=== PATIENT | male | born 1975 | race Caucasian/White ===

== ENCOUNTER 2024-03-01 16:27 | Inpatient (IN) | payer BC, SELFPAY ==
[2024-03-01] VITALS (8 sets, daily range): BP systolic 117–125; BP diastolic 75–91; PULSE 78–88; RESP 12–32; TEMP 36.7; O2SAT 88–97; BMI 31.6
--- NOTE | 2024-03-01 16:51 | CRLHL7_ITS ---
For Patients: As a result of the Century Cures Act, medical imaging exams and procedure reports are released immediately into your electronic medical record. You may view this report before your referring provider. If you have questions, please contact your health care provider. INDICATION: Upper abdominal pain. TECHNIQUE: CT abdomen and pelvis acquired with 100 cc intravenous contrast. Coronal and sagittal reformats were obtained. COMPARISON: None. FINDINGS: Lower chest: Within normal limits. Liver: Within normal limits. Spleen: The spleen is absent. Pancreas: Within normal limits. Gallbladder and bile ducts: Within normal limits. Kidneys: Unremarkable. Within normal limits. Adrenal glands: Within normal limits. Bowel: Several air-fluid levels involve the right-sided colon. Vascular: Within normal limits. Lymph nodes: Within normal limits. Peritoneum: Extensive free intraperitoneal air, most prominent underlying the right hemidiaphragm along the superior margin of the liver capsule as well as within the upper ventral abdomen. There are inflammatory changes involving the left-sided sigmoid colon, favored to reflect diverticulitis. A few small foci of gas are present along the margins of the inflamed colonic wall, although no clear site of bowel perforation is identified. Pelvis: Within normal limits. Bones: Within normal limits. Abdominal wall: Postop changes of ventral mesh hernia repair. IMPRESSION: 1. Multifocal extensive free intraperitoneal air, favored to reflect sequela of perforated diverticulitis given the inflamed left-sided sigmoid colon. Notably however, no focal site of bowel perforation is clearly identified. Surgery consult is recommended. Please note that all CT scans at this facility use dose modulation, iterative reconstruction, and/or weight-based dosing when appropriate to reduce radiation dose to as low as reasonably achievable. Dictated by Bob Montero MD @ 03/01/2024 5:53:53 PM (Electronically Signed)
--- NOTE | 2024-03-01 16:53 | ED_ITS ---
HPI - General Adult General Chief complaint: Abdominal Pain Stated complaint: stomach pain, constipation Time Seen by Provider: 03/01/24 16:28 History of Present Illness HPI narrative: Patient is a 48 year white male who has had several days of constipation, but now severe abdominal pain. He reports that diffusely in his lower abdomen radiates up into his lower abdomen and upper abdomen. He has had a history of pancreatitis in the past. He has had a history of inguinal hernia repair. He is generally quite healthy. His chart indicates that he is on atorvastatin and sertraline valacyclovir and Adderall. Denies fever chills, dysuria, hematuria. Patient presents in moderate distress to the ER with this complaint. Patient also tried some GoLYTELY. He had a sinus cold the last few days and he was taking [id number]-comprri medications. Related Data Home Medications ?Medication ?Instructions ?Recorded ?Confirmed atorvastatin 20 mg tablet 20 mg PO DAILY 06/23/23 06/23/23 dextroamphetamine-amphetamine ER 1 cap PO DAILY 06/23/23 06/23/23 30 mg 24hr capsule,extend release sertraline 100 mg tablet 100 mg PO DAILY 06/23/23 06/23/23 valacyclovir 500 mg tablet 500 mg PO DAILY 06/23/23 06/23/23 Previous Rx's ?Medication ?Instructions ?Recorded azithromycin 250 mg tablet See Rx Instructions PO .COMPLEX #6 06/23/23 tabs Allergies Allergy/AdvReac Type Severity Reaction Status Date / Time No Known Drug Allergies Allergy Verified 06/23/23 12:03 Review of Systems Status of ROS: Reports: 6 or more systems reviewed and unremarkable except as noted in History and below Exam Narrative: Exam Narrative: Objective: Patient has moderate distress He is alert or x3 No cyanosis Pulses regular Chest is clear Abdomen hypoactive bowel sounds Abdomen is diffusely tender with guarding diffusely. Extremities are no edema Neurologic nonfocal in upper lower extremities Const: Vital Signs, click to edit/add: Vital Signs - 24 hr 03/01/24 16:46 03/01/24 17:01 03/01/24 17:34 Temperature 98.1 F Pulse Rate [Right Radial] 82 82 78 Respiratory Rate 32 H 28 H 12 Blood Pressure [Le ft Upper Arm] 117/82 125/91 H 118/75 Pulse Oximetry 97 93 Oxygen Delivery Me thod Room Air Room Air Room Air Course Vital Signs Vital signs: Initial Vital Signs Temperature 98.1 F 03/01/24 16:46 Temperature Source Temporal Artery Scan 03/01/24 16:46 Pulse Rate 82 03/01/24 16:46 Pulse Rhythm Regular 03/01/24 16:46 Respiratory Rate 32 H 03/01/24 16:46 Blood Pressure 117/82 03/01/24 16:46 Blood Pressure Mean 93 03/01/24 16:46 Oxygen Delivery Method Room Air 03/01/24 16:46 Vital Signs Temperature 98.1 F 03/01/24 16:46 Pulse Rate 82 03/01/24 16:46 Respiratory Rate 32 H 03/01/24 16:46 Blood Pressure 117/82 03/01/24 16:46 Oxygen Delivery Method Room Air 03/01/24 16:46 Temperature 98.1 F 03/01/24 16:46 Pulse Rate 78 03/01/24 17:34 Respiratory Rate 12 03/01/24 17:34 Blood Pressure 118/75 03/01/24 17:34 Pulse Oximetry 93 03/01/24 17:34 Oxygen Delivery Method Room Air 03/01/24 17:34 Medications Administered Medications: Discontinued Medications Generic Name Dose Route Start Last Admin Trade Name Freq PRN Reason Stop Dose Admin Sodium Chloride 1,000 mls @ 6,000 mls/hr 03/01/24 17:00 03/01/24 17:36 0.9 % Sodium Chloride 1000 Ml IV 03/01/24 17:09 1,000 mls/hr .Q10M FELICIA Administration Ertapenem 1 gm/ Sodium 100 mls @ 200 mls/hr 03/01/24 18:09 03/01/24 18:31 Chloride IVPB 03/01/24 18:10 200 mls/hr ONCE ONE Administration Lorazepam 0.5 mg 03/01/24 16:51 03/01/24 17:14 Lorazepam 2 Mg/Ml Inj IVP 03/01/24 16:52 0.5 mg ONCE ONE Administration Morphine Sulfate 4 mg 03/01/24 16:51 03/01/24 17:15 Morphine 4 Mg/Ml Inj IVP 03/01/24 16:52 4 mg ONCE ONE Administration Morphine Sulfate 2 mg 03/01/24 18:28 03/01/24 18:32 Morphine 4 Mg/Ml Inj IVP 03/01/24 18:29 2 mg ONCE ONE Administration Medical Decision Making MDM Narrative Medical decision making narrative: [age] year white male with several day history of constipation now with severe abdominal pain. Rule out constipation, rule out obstruction, rule out appendicitis, or intra-abdominal infection. Patient will get a CT scan with IV contrast of his abdomen pelvis, IV pain control, IV fluid, laboratory studies electrolytes. Disposition pending findings above and clinical response. Addendum 6:07 p.m. [place] [id number], his CT scan shows sigmoid diverticulitis and free air consistent with perforated sigmoid diverticulitis, and he has no evidence of fluid collection or abscess. Have discussed with General surgery and they will review the case and determine if he can obtain treatment here or needs more advanced care. Addendum: The patient this case has been reviewed by General surgery they feel like and taken the operating room here safely will start ertapenem. Patient reports he last ate before noon Lab Data Labs: Lab Results 03/01/24 Range/Units 17:00 WBC 15.03 H (4.50-11.00) K/uL RBC 4.96 (4.30-5.90) m/uL Hgb 15.2 (13.5-17.5) gm/dL Hct 45.4 (37.0-53.0) % MCV 92 (80-100) fL MCH 31 (26-34) pg MCHC 34 (32-36) gm/dL RDW Coeff of Romero 12.7 (11.5-15.5) % Plt Count 403 (140-440) K/uL Neut % (Auto) 70.9 (42.0-72.0) % Lymph % (Auto) 22.4 (20-44) % [place] % (Auto) 6.4 (0.0-11.0) % Eos % (Auto) 0.1 (0.0-7.0) % Baso % (Auto) 0.1 (0.0-3.0) % Neut # (Auto) 10.70 H (1.7-7.0) K/uL Lymph # (Auto) 3.40 H (0.90-2.90) K/uL [place] # (Auto) 1.00 H (0.00-0.90) K/UL Eos # (Auto) 0.00 (0.00-0.50) K/uL Baso # (Auto) 0.00 (0.00-0.30) K/uL Abs Immat Gran (auto) 0.00 (0.00-0.30) K/uL Imm/Tot Granulo (auto) 0.1 % Sodium 135 (135-149) mmol/L Potassium 3.7 (3.6-5.1) mmol/L Chloride 102 (96-114) mmol/L Carbon Dioxide 24 (20-32) mmol/L Anion Gap 9 (7-15) mEq/L BUN 22 (5-24) mg/dL Creatinine 1.3 (0.5-1.5) mg/dL Estimated Creat Clear 73.31 Estimated GFR 69 ml/min Glucose 126 H (60-115) mg/dL Calcium 9.4 (8.4-10.6) mg/dL Total Bilirubin 0.4 (0.1-1.5) mg/dL Direct Bilirubin 0.3 (0.0-0.5) mg/dL AST 44 H (12-35) U/L ALT 43 (4-50) U/L Alkaline Phosphatase 89 (40-150) U/L C-Reactive Protein 1.2 H (0.5-1.0) mg/dL Total Protein 7.9 (6.0-8.3) g/dL Albumin 4.7 (3.3-5.0) g/dL Amylase 78 (18-89) U/L Lipase 75 (23-300) U/L Discharge Plan Discharge Clinical Impression: Abdominal pain, Constipation Patient Disposition: Admitted As Observation
[2024-03-01 17:08] LABS: Basophils Percent Auto 0.1 % (0.0-3.0); Eosinophils Percent Auto 0.1 % (0.0-7.0); Hematocrit 45.4 % (37.0-53.0); Hemoglobin* 15.2 gm/dL (13.5-17.5); Immature Granulocytes Pct Auto 0.1 %; Lymphocytes Percent Auto 22.4 % (20-44); Mean Corpuscular HGB Conc 34 gm/dL (32-36); Mean Corpuscular Hemoglobin 31 pg (26-34); Mean Corpuscular Volume 92 fL (80-100); Monocytes Percent Auto 6.4 % (0.0-11.0); Neutrophils Percent Auto 70.9 % (42.0-72.0); Platelet Count* 403 K/uL (140-440); RDW Coefficient of Variation % 12.7 % (11.5-15.5); Red Blood Count 4.96 m/uL (4.30-5.90); White Blood Count* 15.03 K/uL (4.50-11.00)
[2024-03-01 17:13] LABS: Slide Review Reflex No
[2024-03-01] MEDS: LORazepam 2 MG/ML inj 0.5 MG IVP (17:14)
[2024-03-01] MEDS: MORPHINE 4 MG/ML INJ IVP (17:15)
[2024-03-01 17:21] LABS: Albumin* 4.7 g/dL (3.3-5.0); Chloride* 102 mmol/L (96-114)
[2024-03-01 17:22] LABS: Potassium* 3.7 mmol/L (3.6-5.1); Sodium* 135 mmol/L (135-149)
[2024-03-01 17:24] LABS: Amylase* 78 U/L (18-89); Anion Gap 9 mEq/L (7-15); Blood Urea Nitrogen* 22 mg/dL (5-24); Carbon Dioxide* 24 mmol/L (20-32); Creatinine* 1.3 mg/dL (0.5-1.5); Est. Creatinine Clearance* 73.31; Estimated Glomerular Filt Rate 69 ml/min; Total Protein* 7.9 g/dL (6.0-8.3)
[2024-03-01 17:25] LABS: Alanine Aminotransferase* 43 U/L (4-50); Alkaline Phosphatase* 89 U/L (40-150); Aspartate Amino Transferase* 44 U/L (12-35); Bilirubin Direct* 0.3 mg/dL (0.0-0.5); Bilirubin Total* 0.4 mg/dL (0.1-1.5); Calcium* 9.4 mg/dL (8.4-10.6); Glucose* 126 mg/dL (60-115)
[2024-03-01] MEDS: 0.9 % SODIUM CHLORIDE 1000 ml 1,000 ML IV (17:36)
[2024-03-01 17:47] LABS: C Reactive Protein* 1.2 mg/dL (0.5-1.0)
[2024-03-01 17:59] LABS: Lipase* 75 U/L (23-300)
[2024-03-01] MEDS: ERTAPENEM 1 GM in 0.9 % SODIUM CHLORIDE Mini-bag 100 ML IVPB (18:31)
[2024-03-01] MEDS: MORPHINE 4 MG/ML INJ 2 MG IVP (18:32)
--- NOTE | 2024-03-01 18:58 | P.GSHP_ITS ---
History of Present Illness History of Present Illness Date Seen: 03/01/24 Chief complaint: stomach pain, constipation Narrative: Rojelio Mayes is a 48 year old male who presented to the emergency department in severe abdominal pain. He started to feel unwell on Saturday. Initially he thoug ht he was starting to get a cold. He was also feeling very constipated, with his last bowel movement 3 days earlier. He has continued to pass gas. Today his abdominal pain became more diffuse and severe. He initially tried to drink some GoLYTELY, which made his symptoms worse and prompted him to come into the emergency department. He has never had anything like this before. He does have a complex abdominal surgical history, which includes an exploratory laparotomy when he was 21 for frequent bouts of pancreatitis. 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 His appendix was removed at the same time. He has also had several hernia repairs, with placement of mesh. Occasional cigarette and alcohol use, not every day. Otherwise healthy. Review of Systems Status of ROS: Reports: 10 or more systems reviewed and unremarkable except as noted in History and below [facility] Social History Smoking Status: Never smoker Do you use any of these nicotine containing products: None How often do you have a drink containing alcohol: monthly or less AUDIT-C Alcohol total score: 1 Non-prescribed substance use: denies use Meds Home Medications and Allergies Home Medications ?Medication ?Instructions ?Recorded ?Confirmed ?Type atorvastatin 20 mg tablet 20 mg PO DAILY 06/23/23 06/23/23 History dextroamphetamine-amphetamine ER 1 cap PO DAILY 06/23/23 06/23/23 History 30 mg 24hr capsule,extend release sertraline 100 mg tablet 100 mg PO DAILY 06/23/23 06/23/23 History valacyclovir 500 mg tablet 500 mg PO DAILY 06/23/23 06/23/23 History Allergies Allergy/AdvReac Type Severity Reaction Status Date / Time No Known Drug Allergies Allergy Verified 06/23/23 12:03 Exam Narrative: Exam Narrative: General: Alert and oriented, in moderate distress and diaphoretic Respiratory: Equal breath rise, maintained on room air CV: Well perfused, tachycardic Abdomen: Diffuse guarding and rebound, peritonitic abdomen. Rigid. Const: Vital Signs, click to edit/add: Vital Signs - 24 hr 03/01/24 16:46 03/01/24 17:01 03/01/24 17:34 Temperature 98.1 F Pulse Rate [Right Radial] 82 82 78 Respiratory Rate 32 H 28 H 12 Blood Pressure [Le ft Upper Arm] 117/82 125/91 H 118/75 Pulse Oximetry 97 93 Oxygen Delivery Me thod Room Air Room Air Room Air Results Results Labs: Leukocytosis (15). Mild elevation [facility] [employer] 1.2. Abdomen CT scan report/results: report reviewed and image reviewed Progress Note:A&P Assessment and plan (1) Perforated abdominal viscus: Status: Acute Assessment and Plan: Patient presents to the emergency department with an acute abdomen. CT scan demonstrates a significant amount of intra-abdominal free air. Etiology is suggestive on imaging for perforated diverticulitis, however no obvious site of bowel perforation identified. Could also be a gastric ulcer or small-bowel perforation. Recommend emergent surgical intervention. Risks and benefits of proceeding to the operating room were discussed at length with the patient. Would plan to perform exploratory laparotomy. Patient did receive IV ertapenem in the emergency department.
[2024-03-01] MEDS: LACTATED RINGERS 1000 ML 1,000 ML 125 ML IV (19:30)
--- NOTE | 2024-03-01 20:27 | SUR.OPER ---
PATIENT QUESTIONS ANSWERED SATISFACTORILY PREOPERATIVELY. PATIENT BROUGHT TO OR #4 PER CART. Patient positioned supine on OR #4 bed. The perioperative team supported arms bilaterally on arm boards. Final approval of positioning by surgeon.
--- NOTE | 2024-03-01 21:36 | SUR.OPER ---
PT. FAMILY UPDATED BY PHONE CALL AT 21:37.
--- NOTE | 2024-03-01 21:50 | P.NB_ITS ---
Nerve Block Nerve Block Time Seen by Provider: 20:00 Date Seen: 03/01/24 Type of block requested by surgeon for post-operative analgesia: TAP Side: bilateral Time out performed: Yes Verification of patient name: Yes Verification of date of : Yes Site marking: site marked Name of person performing procedure: Gilberto Stephen Continuous monitoring Was continuous monitoring of O2 sat, B/P, satellite project site monitor, recorded every 15 minutes?: Yes Procedure Checklist: sterile prep, needles and gloves Ultrasound guided. Images saved: Yes Medications given in 5ml increments after negative aspiration: Marcaine %: 0.25 mL: 30 Needle gauge: 21 and Exparel mL: 10 Needle gauge: 21 Patient tolerated procedure well: Yes Additional comments: Injected in 5mL increments after negative aspiration Block Charges Block Charge (with Pro Fee): TAP Bilateral Use of Ultrasound Machine for Block: Yes- US Guidance/pain block
[2024-03-02] VITALS (26 sets, daily range): BP systolic 133–151; BP diastolic 81–101; PULSE 72–85; RESP 16–24; TEMP 36.4–37.3; O2SAT 90–95
--- NOTE | 2024-03-02 00:43 | P.GSOP_ITS ---
Operative Note Date of procedure: 03/02/24 Pre-op diagnosis: Intra-abdominal free air Post-op diagnosis: Perforated diverticulitis of the distal descending colon Type of Procedure: 1. Exploratory laparotomy 2. Lysis of adhesions 3. Resection of distal descending colon 4. end colostomy creation 5. Mucous fistula creation Indications: Patient is a 48-year-old male who presented to the emergency department in acute distress. Clinical exam consistent with an acute abdomen and CT scan confirming presence of intra-abdominal free air. Recommend that patient proceed to the operating room for an emergency surgery. Risks and benefits of the surgery were discussed at length the patient. Risks included, were not limited to: Bleeding, infection, risk of damage to surrounding structures and possible need for additional procedures. Procedure Description: After discussing the risks and benefits of the procedure, the patient signed informed consent.? The operative site was marked and the patient was brought to the operating room and placed on the operating table in supine position.? Care was taken to pad the patient's pressure points.?? The patient was then intubated by anesthesia.?? An NG tube was placed by Anesthesia, tap blocks were performed and a [place] placed under sterile conditions. The operative site was then prepped and draped in the usual sterile fashion.? A time-out was then performed. A midline incision was made with a 10 blade scalpel. Dissection was carried down through subcutaneous tissue with cautery. The anterior fascia was incised with cautery. [place] clamps were placed on the fascia, which was retracted. The peritoneum was carefully incised with Metzenbaum scissors. No evidence of succus or contamination upon entering the abdomen. Evidence of extensive omental adhesions along the anterior abdominal wall, at the previous midline incision site and in the pelvis. These were dissected free with cautery and Vicryl ties. The Omni was brought onto the field and used to help assist with retraction. Once the omentum was completely freed from the anterior abdominal wall it was retracted cephalad. The transverse colon was inspected, appeared healthy. The small bowel was run from ligament of Treitz to ileocecal valve. There were several adhesions to small bowel mesentery and loops of adjacent small bowel, which were dissected free with Metzenbaum scissors to allow for adequate inspection of the entire small bowel. There was evidence of some serosal irritation within the mid jejunum, but no obvious injury. The right side of the colon was visualized, healthy in appearance with no obvious injury. The stomach was visualized and palpated, with confirmation of appropriate NG tube placement by anesthesia. No evidence of injury. The descending colon was then visualized with some purulence noted in the left pericolic gutter. The colon was carefully inspected with evidence on a small segment on the distal descending colon of inflammation and a 2 mm perforation on the lateral aspect of the colon through an epiploic appendage. The epiploic fat was carefully dissected away from the colon to fully visualize the defect, which was on a diverticulum and full-thickness. I was able to expel some stool with manipulation, confirming this site as the area of perforation. A [id number] stitch was placed around the defect to minimize contamination for the remainder of the procedure. Attention was then directed towards mobilization of the colon. This portion of the procedure was made difficult secondary to adhesions from the patient's previous operation in the left upper quadrant and a large amount of intra- abdominal fat. Cautery was used to take down the white line of Toldt along the lateral abdominal wall. This was dissected toward the splenic flexure. Using retraction the splenic flexure was carefully taken down from the abdominal wall adhesions with cautery and Metzenbaum scissors when appropriate. There were a significant amount of adhesions from the patient's previous splenectomy procedure. Dissection was continued on the distal aspect of the transverse colon, taking down the gastrocolic ligaments. At the completion of the procedure the left colon was mobile and easily brought towards midline. Dissection was further carried down into the pelvis, again with cautery along the white line of Toldt. Once there was adequate mobilization a segment of healthy colon proximal and distal to the perforation was chosen for sites of transection. Cautery was used to create a hole along the mesenteric border of the colon. Using two ELEANOR 100 mm staple loads the distal descending colon was transected. The mesentery was serially taken down with 2-0 silk ties. The specimen was approximately 15 cm in size and removed from the abdomen. It was placed on the back table to be sent to pathology. An area was chosen on the left lateral wall for an ostomy creation. A circular incision was made in the skin and dissection carried down to the anterior fascia with cautery. The skin and underlying subcutaneous fat was removed and passed off for disposal. The anterior fascia was then incised via a cruciate incision with cautery. Some dissection of the underlying muscle was done with cautery. The posterior fascia was incised via cruciate incision. Two fingers were able to easily pass through the fascial incision. Using [place] the proximal end ostomy was easily brought through the incision. It was secured in place with several 2-0 Vicryl sutures on the anterior fascia. The mucous fistula did not fit through the ostomy site, secondary to the abundant amount of epiploic fat and fatty mesentery. The epiploic fat was carefully dissected away with cautery. A small amount of dissection of the mesentery was also needed. A [place] was then used to bring the Muriel's through the ostomy site for a mucous fistula creation. The colon was secured in place with several 2-0 Vicryl sutures in the anterior fascia. The abdomen was then irrigated with warm saline. A small tear on the left lobe of the liver was noted, with no active bleeding. A piece of Surgicel was placed on the area. A 15 [place] JOJO drain was placed in the pelvis and secured with 2-0 nylon suture. At this point all dirty equipment was removed from the field and we proceeded with our closing tray. The midline incision was closed in a running fashion with two looped 0 Maxon sutures. The umbilicus was reapproximated with interrupted 3-0 Vicryl sutures. The skin was then closed with jose. Sterile dressings were applied. We then proceeded with maturation of our ostomy and mucous fistula. The staple line of the ostomy was removed with cautery. The ostomy was brooked at 3 points to assist with eversion of the colon. The ostomy was then sutured in place with interrupted 3 0 Vicryl. A small portion of the staple line was removed from the distal colon, to create the mucous fistula. This was sutured to the skin with interrupted 3-0 Vicryl. The end colostomy took up greater than 2/3 of the stoma, with a small opening to the mucous fistula apparent on the inferior aspect. A finger was able to easily pass through the end ostomy and mucous fistula. Sterile dressings were then applied. ? The patient was then woken and transported to the recovery area in stable condition. ? The patient tolerated the procedure well. Findings: Perforated diverticulitis of the distal descending colon. Anesthesia: GETA Surgeon: Pau Puente MD Estimated blood loss (mL): 75 Additional Specimen Information: Distal descending colon. Ostomy staple lines. Condition: stable Disposition: PACU
--- NOTE | 2024-03-02 01:09 | W.ANESCHARGE ---
Anesthesia Charges Start Date/Time Anesthesia Start Date: 03/01/24 Anesthesia Start Time: 19:41 Stop Date/Time Anesthesia Stop Date: 03/02/24 Anesthesia Stop Time: 00:51 Summary Emergency: [facility]
[2024-03-02] MEDS: LACTATED RINGERS 1000 ML 1,000 ML 125 ML IV ×3 (03:48→19:00)
[2024-03-02] MEDS: HYDROmorphone 0.5 mg/0.5 ml inj IVP ×6 (06:40→20:44)
--- NOTE | 2024-03-02 07:40 | PC.NURSE ---
Pt has been very droozy. VSS. Arouses easily but falls asleep quickly. Pain has been about a 2 until 6 when pt stated it was going up to about a 5. .5 of Dilaudid given with a relief. NG put out minimal amt of drainage. Elda with no output. Abdominal dressing CDI. TELE NSR
[2024-03-02 08:31] LABS: Hematocrit 40.5 % (37.0-53.0); Hemoglobin* 13.5 gm/dL (13.5-17.5); Immature Granulocytes Pct Auto 0.2 %; Lymphocytes Percent Auto 11.8 % (20-44); Mean Corpuscular HGB Conc 33 gm/dL (32-36); Mean Corpuscular Hemoglobin 31 pg (26-34); Mean Corpuscular Volume 92 fL (80-100); Monocytes Percent Auto 5.7 % (0.0-11.0); Neutrophils Percent Auto 82.3 % (42.0-72.0); Platelet Count* 344 K/uL (140-440); White Blood Count* 14.76 K/uL (4.50-11.00)
[2024-03-02 08:34] LABS: Slide Review Reflex No
[2024-03-02 08:44] LABS: Chloride* 105 mmol/L (96-114); Potassium* 4.4 mmol/L (3.6-5.1); Sodium* 134 mmol/L (135-149)
[2024-03-02 08:47] LABS: Anion Gap 4 mEq/L (7-15); Blood Urea Nitrogen* 17 mg/dL (5-24); Calcium* 8.4 mg/dL (8.4-10.6); Carbon Dioxide* 25 mmol/L (20-32); Creatinine* 0.7 mg/dL (0.5-1.5); Est. Creatinine Clearance* 136.15; Estimated Glomerular Filt Rate 115 ml/min; Glucose* 147 mg/dL (60-115)
--- NOTE | 2024-03-02 09:18 | PM.GSPN ---
Subjective Subjective Date Seen: 03/02/24 Interval history: Patient is doing well this morning. His pain is better than when he came in, but he does have a lot of incisional discomfort when he moves. He has not yet gotten up to a chair. Denies any nausea. Still feeling sleepy from surgery. Exam Narrative: Exam Narrative: General: Alert and oriented, no acute distress HEENT: NG tube in place with bilious output Abdomen: Dressings clean/dry/intact. Left lower quadrant stoma in place colostomy is healthy in appearance, no gas or stool in bag. JOJO drain with minimal sanguinous output. Appropriately tender over incision sites. Const: Vital Signs, click to edit/add: Vital Signs - 24 hr 03/01/24 16:46 03/01/24 17:00 03/01/24 17:01 Temperature 98.1 F Pulse Rate Pulse Rate [Right Radial] 82 82 Respiratory Rate 32 H 28 H Blood Pressure Blood Pressure [Le ft Upper Arm] 117/82 125/91 H Pulse Oximetry 97 97 Oxygen Delivery Me thod Room Air Room Air Oxygen Flow Rate 03/01/24 17:34 03/01/24 17:45 03/01/24 18:00 Temperature Pulse Rate Pulse Rate [Right Radial] 78 Respiratory Rate 12 Blood Pressure Blood Pressure [Le ft Upper Arm] 118/75 Pulse Oximetry 93 88 93 Oxygen Delivery Me thod Room Air Room Air Nasal Cannula Oxygen Flow Rate 2 03/01/24 19:24 03/01/24 19:30 03/02/24 00:49 Temperature 98.4 F Pulse Rate 88 86 77 Pulse Rate [Right Radial] Respiratory Rate 16 24 Blood Pressure 143/90 H Blood Pressure [Le ft Upper Arm] Pulse Oximetry 94 96 92 Oxygen Delivery Me thod Nasal Cannula Oxygen Flow Rate 3 03/02/24 00:55 03/02/24 01:00 03/02/24 01:05 Temperature 98.5 F Pulse Rate 79 82 85 Pulse Rate [Right Radial] Respiratory Rate 16 18 20 Blood Pressure 140/90 H 135/91 H 142/90 H Blood Pressure [Le ft Upper Arm] Pulse Oximetry 94 95 95 Oxygen Delivery Me thod OxyMask OxyMask OxyMask Oxygen Flow Rate 10 10 10 03/02/24 01:10 03/02/24 01:15 03/02/24 01:20 Temperature Pulse Rate 80 78 80 Pulse Rate [Right Radial] Respiratory Rate 20 18 20 Blood Pressure 141/83 H 138/84 139/90 H Blood Pressure [Le ft Upper Arm] Pulse Oximetry 95 93 93 Oxygen Delivery Me thod OxyMask Room Air Room Air Oxygen Flow Rate 6 03/02/24 01:25 03/02/24 02:00 03/02/24 02:15 Temperature 98.3 F Pulse Rate 82 80 77 Pulse Rate [Right Radial] Respiratory Rate 18 Blood Pressure 133/88 136/86 137/81 Blood Pressure [Le ft Upper Arm] Pulse Oximetry 93 92 92 Oxygen Delivery Me thod Room Air Room Air Room Air Oxygen Flow Rate 03/02/24 02:30 03/02/24 02:45 03/02/24 03:00 Temperature 99.2 F 99.2 F 99.2 F Pulse Rate 81 77 77 Pulse Rate [Right Radial] Respiratory Rate 18 18 18 Blood Pressure 138/83 143/87 H 144/87 H Blood Pressure [Le ft Upper Arm] Pulse Oximetry 93 93 Oxygen Delivery Me thod Nasal Cannula Nasal Cannula Nasal Cannula Oxygen Flow Rate 2 2 2 03/02/24 03:00 03/02/24 03:30 03/02/24 04:00 Temperature 99.2 F 99 F Pulse Rate 79 79 80 Pulse Rate [Right Radial] Respiratory Rate 18 20 Blood Pressure 146/89 H 145/88 H Blood Pressure [Le ft Upper Arm] Pulse Oximetry 93 93 Oxygen Delivery Me thod Nasal Cannula Nasal Cannula Oxygen Flow Rate 2 2 03/02/24 04:15 03/02/24 05:00 03/02/24 06:00 Temperature 99 F 98.8 F Pulse Rate 81 83 84 Pulse Rate [Right Radial] Respiratory Rate 18 18 Blood Pressure 148/83 H 146/83 H Blood Pressure [Le ft Upper Arm] Pulse Oximetry 93 92 Oxygen Delivery Me thod Nasal Cannula Nasal Cannula Oxygen Flow Rate 2 2 03/02/24 07:00 03/02/24 08:00 03/02/24 08:14 Temperature 98.7 F 97.6 F Pulse Rate 83 83 Pulse Rate [Right Radial] Respiratory Rate 18 18 18 Blood Pressure 141/86 H 149/88 H Blood Pressure [Le ft Upper Arm] Pulse Oximetry 92 92 92 Oxygen Delivery Me thod Nasal Cannula Nasal Cannula Nasal Cannula Oxygen Flow Rate 2 2 2 Labs/Imaging Labs Labs: Hemoglobin 15--13. WBC 14 Imaging Imaging: No new imaging. Progress Note:A&P Assessment and plan (1) Perforated abdominal viscus: Status: Acute Plan Patient is postop day 0 exploratory laparotomy, resection of distal descending colon with creation of end colostomy and mucous fistula. Evidence of intra-abdominal free air secondary to perforated diverticulum. Vital signs stable since coming back from the operating room. Afebrile, leukocytosis (14). Drop in hemoglobin is likely scheduling representative of postoperative blood loss and dilution. No concern for ongoing bleeding. Very minimal output from JOJO drain, will continue in place at this time. NG tube to stay in place until return of bowel function. Will consult ostomy nurse to begin Education. -NPO, IV fluids -NG tube low intermittent suction -IV and p.o. pain meds as needed -remove [place] this morning -encourage ambulation -SCDs, Lovenox for DVT prophylaxis to start tonight
--- NOTE | 2024-03-02 09:20 | NUTR.NU ---
RDN with diet education related to new colostomy. Patient admitted for Perforated diverticulitis of the distal descending colon, underwent ex. lap 03/02 with end colostomy. Current weight 220 lbs; height 5ft 10in; BMI 31.6 kg/m2. Diet order currently NPO. Not appropriate at this time to visit and offer diet education. RDN will continue to monitor and attempt to visit at later date when more appropriate.
[2024-03-02] MEDS: KETOROLAC 15 MG/ML inj IVP ×2 (17:24→23:05)
--- NOTE | 2024-03-02 18:38 | PC.NURSE ---
End of shift note ([id number]): Pt A&Ox3, pleasant, and cooperative. SBA, up and walking during shift. VSS. TELE NSR. Denies H/N/V/CP/SOB.?Pain has been sitting around 11/14, PRN pain medication given. Relief noted. Abdominal dressing CDI. NG output: 50 ml, JOJO output: 15 ml. Pt voiding well after pascual being discontinued. Uses call light appropriately. Pt is resting with call light in reach. ?
[2024-03-02] MEDS: ERTAPENEM 1 GM in 0.9 % SODIUM CHLORIDE Mini-bag 100 ML IVPB (19:15)
[2024-03-02] MEDS: 0.9 % SODIUM CHLORIDE 250 ml IV (19:21)
[2024-03-02] MEDS: ENOXAPARIN 40 MG/0.4 ML INJ SUBCUT (20:44)
[2024-03-02] MEDS: BENZOCAINE/MENTHOL 1 EACH LOZENGE MUCOUS MEM (22:04)
[2024-03-02] MEDS: SODIUM CHLORIDE 0.9 % (FLUSH) 10 ML SYRINGE 5 ML IVF (23:10)
[2024-03-03] VITALS (10 sets, daily range): BP systolic 131–147; BP diastolic 79–97; PULSE 73–85; RESP 16–18; TEMP 36.2–37; O2SAT 86–96
[2024-03-03] MEDS: HYDROmorphone 0.5 mg/0.5 ml inj IVP ×4 (01:27→16:31)
[2024-03-03] MEDS: LACTATED RINGERS 1000 ML 1,000 ML 125 ML IV ×3 (04:42→20:23)
[2024-03-03] MEDS: KETOROLAC 15 MG/ML inj IVP ×3 (04:44→17:51)
[2024-03-03] MEDS: SODIUM CHLORIDE 0.9 % (FLUSH) 10 ML SYRINGE 5 ML IVF ×2 (04:45→06:50)
[2024-03-03 06:34] LABS: Basophils Percent Auto 0.2 % (0.0-3.0); Hematocrit 36.2 % (37.0-53.0); Hemoglobin* 11.9 gm/dL (13.5-17.5); Immature Granulocytes Pct Auto 0.2 %; Lymphocytes Percent Auto 19.2 % (20-44); Mean Corpuscular HGB Conc 33 gm/dL (32-36); Mean Corpuscular Hemoglobin 31 pg (26-34); Mean Corpuscular Volume 94 fL (80-100); Monocytes Percent Auto 6.9 % (0.0-11.0); Neutrophils Percent Auto 73.5 % (42.0-72.0); Platelet Count* 328 K/uL (140-440); RDW Coefficient of Variation % 13.2 % (11.5-15.5); Red Blood Count 3.84 m/uL (4.30-5.90); White Blood Count* 12.34 K/uL (4.50-11.00)
[2024-03-03 06:49] LABS: Chloride* 102 mmol/L (96-114); Sodium* 135 mmol/L (135-149)
--- NOTE | 2024-03-03 06:49 | PC.NURSE ---
SHIFT NOTE: Pt A&O, pleasant. PRN Dilaudid and PRN Toradol given for pain with pt reporting adequate relief, ice pack to abdomen, splinting with a pillow. NG patent, output 100ml greenish brown. Pt denies N/V, SOB, and CP. JOJO stripped and drained Q4H, dressings C/D/I. Up SBA, increased pain with movement.
[2024-03-03 06:51] LABS: Slide Review Reflex No
[2024-03-03 06:52] LABS: Anion Gap 5 mEq/L (7-15); Blood Urea Nitrogen* 24 mg/dL (5-24); Carbon Dioxide* 28 mmol/L (20-32); Creatinine* 0.8 mg/dL (0.5-1.5); Est. Creatinine Clearance* 119.13; Estimated Glomerular Filt Rate 111 ml/min; Glucose* 120 mg/dL (60-115)
[2024-03-03 06:53] LABS: Calcium* 8.8 mg/dL (8.4-10.6)
[2024-03-03] MEDS: ONDANSETRON 2 MG/ML inj IVP (09:30)
--- NOTE | 2024-03-03 10:00 | PC.NURSE ---
Notified Dr. Puente of saturations 89%-91% while awake. Per MD, continue pulmonary hygiene and ambulation and continue to monitor.
--- NOTE | 2024-03-03 10:35 | P.GSPN_ITS ---
Subjective Subjective Date Seen: 03/03/24 Interval history: Patient is doing ?much better? this morning. His pain is less than yesterday, he is still needing narcotic pain medicine. He feels very hungry this morning. His stoma it does have stool output, he has not noticed any gas in the bag. He has been able to walk halls twice today. No other concerns. Exam Narrative: Exam Narrative: General: Alert and oriented, no acute distress Abdomen: Soft, appropriately tender over incision sites. Distention improved. Midline incision with jose in place, some surrounding ecchymoses with no concern for infection. Right lower quadrant drain in place with minimal serosanguineous output. Left-sided ostomy with stool in bag, colostomy visualized and mucosa is viable. Const: Vital Signs, click to edit/add: Vital Signs - 24 hr 03/02/24 11:17 03/02/24 15:00 03/02/24 15:00 Temperature 98.0 F Pulse Rate Pulse Rate [Right Pulse Oximeter] 80 Respiratory Rate 16 16 Blood Pressure [Le ft Arm] 140/88 H Blood Pressure [R forearm] Pulse Oximetry 92 91 Oxygen Delivery Me thod Nasal Cannula Room Air Oxygen Flow Rate 2 03/02/24 15:00 03/02/24 15:00 03/02/24 19:00 Temperature 98.6 F 97.5 F L Pulse Rate 83 Pulse Rate [Right Pulse Oximeter] 72 73 Respiratory Rate 18 18 Blood Pressure [Le ft Arm] Blood Pressure [R forearm] 151/101 H 142/93 H Pulse Oximetry 91 92 Oxygen Delivery Me thod Room Air Room Air Oxygen Flow Rate 03/02/24 23:00 03/02/24 23:00 03/02/24 23:00 Temperature 97.8 F Pulse Rate Pulse Rate [Right Pulse Oximeter] 78 78 Respiratory Rate 18 18 18 Blood Pressure [Le ft Arm] Blood Pressure [R forearm] 148/91 H Pulse Oximetry 90 90 Oxygen Delivery Me thod Room Air Room Air Oxygen Flow Rate 03/02/24 23:00 03/03/24 04:00 03/03/24 07:39 Temperature 98 F 97.5 F L Pulse Rate 77 Pulse Rate [Right Pulse Oximeter] 85 83 Respiratory Rate 18 16 Blood Pressure [Le ft Arm] Blood Pressure [R forearm] 141/87 H 133/79 Pulse Oximetry 88 91 Oxygen Delivery Me thod Room Air Room Air Oxygen Flow Rate 03/03/24 08:54 Temperature Pulse Rate Pulse Rate [Right Pulse Oximeter] Respiratory Rate Blood Pressure [Le ft Arm] Blood Pressure [R forearm] Pulse Oximetry 91 Oxygen Delivery Me thod Room Air Oxygen Flow Rate Labs/Imaging Labs Labs: Leukocytosis trending down. Imaging Imaging: No new imaging. Progress Note:A&P Assessment and plan (1) Perforated abdominal viscus: Status: Acute Plan Patient is postop day 1 exploratory laparotomy, resection of distal descending colon with creation of end colostomy and mucous fistula. Evidence of intra- abdominal free air secondary to perforated diverticulum. Vital signs stable and patient afebrile. Leukocytosis trending down. Will plan to continue with IV ertapenem at this time. Ostomy with stool in bag, minimal output from NG tube in patient feeling hungry. Still early in the postop period for patient to have return of bowel function, however will keep NG tube clamped this morning and okay for sips of clear liquids. Ostomy consult placed with Education to start today. -okay for sips of clear liquid, IV fluids -NG tube clamping trial today. -IV and p.o. pain meds as needed -continue IV ertapenem, trend fever and WBC -JOJO drain to remain in place, anticipate removal tomorrow. Will continue to monitor output. -encourage ambulation -SCDs Lovenox for DVT prophylaxis
--- NOTE | 2024-03-03 13:28 | PC.NURSE ---
Stoma appliance changed by Nurse Practitioner from Wound care.
[2024-03-03] MEDS: HYDROCODONE-ACETAMIN 5-325 MG 1 TAB PO ×3 (14:01→22:27)
--- NOTE | 2024-03-03 14:14 | PC.NURSE ---
End of shift note: Patient has ambulated 4 times this shift. Pain is tolerable with IV toradol and IV Dilaudid. Initiated PO [place] this afternoon. NGT was clamped at 10am. Patient has denied nausea and has not had any emesis. Has taken in Cranberry juice, water, black coffee, and dairy free sherbert. Voiding without difficulty. Bowel sounds are hypoactive. Does have some brown loose stool output. 50ml was emptied when appliance was changed today by wound care. Stoma appears to be healthy and functioning properly. Bed bath was given today. JOJO drain is intact and having minimal drainage. Midline incision is clean, dry and jose intact. Patient's saturations have been on the low end. Did require 1L of oxygen during nap. Has remained on RA when not sleeping. Using the incentive spirometer 10 times per hour. came up this afternoon and is very supportive. IV fluids running at 125ml/hr. Education packet given and videos started.
--- NOTE | 2024-03-03 15:09 | PM.WSCN ---
Date of Consult Consult date: 03/03/24 Requesting Physician: General Surgery Primary Care Provider: Not a Local Provider Consult Narrative Reason for consult: new end colostomy Narrative: Rojelio Mayes is a 48 year old male being seen today by wound services for initial ostomy education and ostomy appliance change. POD day#2 Feels his pain is ?much better? this morning. NG in place, however it is clamped. Surgery has advanced him to clear liquids. Moderate amount of light brown pudding consistency stool in ostomy appliance. He has not noticed gas in his pouch; he has a vented ostomy appliance in place. He has been able to walk halls twice today. No other concerns. He is checking with his insurance provider to determine [facility] vedor preference. Pre-procedure diagnosis. Intra-abdominal free air Post-op diagnosis: Perforated diverticulitis of the distal descending colon Type of Procedure: 1. Exploratory laparotomy 2. Lysis of adhesions 3. Resection of distal descending colon 4. end colostomy creation 5. Mucous fistula creation Intra-abdominal free air Post-op diagnosis: Perforated diverticulitis of the distal descending colon Type of Procedure: 1. Exploratory laparotomy 2. Lysis of adhesions 3. Resection of distal descending colon 4. end colostomy creation 5. Mucous fistula creation Review of Systems Status of ROS: Reports: 6 or more systems reviewed and unremarkable except as noted in History and below [facility] Social History Smoking Status: Never smoker Do you use any of these nicotine containing products: None How often do you have a drink containing alcohol: monthly or less AUDIT-C Alcohol total score: 1 Non-prescribed substance use: denies use Meds Home Medications and Allergies Home Medications ?Medication ?Instructions ?Recorded ?Confirmed ?Type atorvastatin 20 mg tablet 20 mg PO DAILY 06/23/23 03/02/24 History dextroamphetamine-amphetamine ER 1 cap PO DAILY 06/23/23 03/02/24 History 30 mg 24hr capsule,extend release valacyclovir 500 mg tablet 500 mg PO DAILY 06/23/23 03/02/24 History sertraline 50 mg tablet 50 mg PO QAM 03/02/24 03/02/24 History Allergies Allergy/AdvReac Type Severity Reaction Status Date / Time No Known Drug Allergies Allergy Verified 06/23/23 12:03 Exam Narrative: Exam Narrative: General: NAD, alert Eyes: wearing glasses Pulmonary: unlabored, symmetrical rise, on 2L NC. Abd: Minimal discomfort with palpation. Midline surgical wound with intact surgical jose, within normal limits for postop status. stoma picture provided in this section; Please reference ostomy assessment below. Psych: Normal affect, makes good eye contact. Patient is engaged. Const: Vital Signs, click to edit/add: Vital Signs - 24 hr 03/02/24 19:00 03/02/24 23:00 03/02/24 23:00 Temperature 97.5 F L Pulse Rate Pulse Rate [Right Pulse Oximeter] 73 78 Respiratory Rate 18 18 18 Blood Pressure [R forearm] 142/93 H Pulse Oximetry 92 90 Oxygen Delivery Me thod Room Air Room Air 03/02/24 23:00 03/02/24 23:00 03/03/24 04:00 Temperature 97.8 F 98 F Pulse Rate 77 Pulse Rate [Right Pulse Oximeter] 78 85 Respiratory Rate 18 18 Blood Pressure [R forearm] 148/91 H 141/87 H Pulse Oximetry 90 88 Oxygen Delivery Vt thod Room Air Room Air 03/03/24 07:39 03/03/24 08:54 03/03/24 11:09 Temperature 97.5 F L 98.4 F Pulse Rate Pulse Rate [Right Pulse Oximeter] 83 85 Respiratory Rate 16 16 Blood Pressure [R forearm] 133/79 141/87 H Pulse Oximetry 91 91 92 Oxygen Delivery Me thod Room Air Room Air 03/03/24 12:00 Temperature Pulse Rate Pulse Rate [Right Pulse Oximeter] Respiratory Rate Blood Pressure [R forearm] Pulse Oximetry 86 L Oxygen Delivery Me thod Room Air Documenting provider has reviewed patient's vital signs: yes Labs Labs: Short CBC 03/03/24 Range/Units 06:22 WBC 12.34 H (4.50-11.00) K/uL Hgb 11.9 L (13.5-17.5) gm/dL Hct 36.2 L (37.0-53.0) % Plt Count 328 (140-440) K/uL BMP 03/03/24 03/03/24 03/03/24 06:22 06:22 06:22 Sodium 135 Cancelled Potassium 4.0 Cancelled Chloride 102 Carbon Dioxide BUN Creatinine Glucose Calcium 03/03/24 03/03/24 03/03/24 06:22 06:22 06:22 Sodium Potassium Chloride Cancelled Carbon Dioxide 28 Cancelled BUN 24 Cancelled Creatinine 0.8 Glucose Calcium 03/03/24 03/03/24 03/03/24 06:22 06:22 06:22 Sodium Potassium Chloride Carbon Dioxide BUN Creatinine Cancelled Glucose 120 H Cancelled Calcium 8.8 Cancelled Assessment and Plan Assessment and plan (1) Perforated abdominal viscus: Status: Acute (2) Colostomy care: Status: Acute (3) Colostomy in place: Status: Acute Plan Initial FMLA paperwork completed and faxed back to patient's employer, [employer]. Patient will likely need light convexity, flat two piece with ostomy ring placed today d/t limited supply availability. Initial ostomy education completed, advised bedside nurse on ostomy education videos for patient to watch. Discussed goals of care would like achieved in terms of ostomy care prior to discharge. Patient will see nutrition soon.. General surgery updated on stoma status, and if patient is discharged in the next few days will plan to see him on the in our outpatient ostomy Clinic. No initial ostomy supply order was placed due to waiting for update on patient's insurance in regard to preferred DME. However as long as patient is sent home at discharge with a few ostomy appliance changes will plan to order his supplies at his ostomy clinic appointment. Total Time Spent Total Time Spent: 60 Ostomy Ostomy Treating Provider: Lizzette Hector Stoma Status Stoma Number: 1 Stoma Location: [facility], Stoma Type: end colostomy with mucous fistula Surgery Date: 03/02/24 Stoma Details Existing Ostomy: No Reason for Referral: complicated Ostomy Functioning Ostomy Functioning: Yes Type of Drainage: Stool Appearance of Stoma: Edematous (WNL for POD#2) and Moist Color of Stoma: [place] and Red Shape of Stoma: Budded Height of Stoma: Protruding Location of Lumen: Level with skin Mucocutaneous Separation: Edema (WNL for POD#2, minimal MJ separation ) Peristomal Skin Assessment: Within Normal Limits Pain Patient has pain: Yes With pouch change?: No Constant/intermittent pain?: Intermittent Medication Prescribed for pain?: Yes Is the current pain medication adequate?: Adequate Pain at rest: No Seal Maintained: No (Minor silent leak under barrier) Appliance Adjustment to ostomy: Patient experiencing difficulty adapting to ostomy (New ostomy creation, unplanned. WNL at this time for patient's to experience difficulty adapting to their ostomy, however with ongoing education support anticipate patient will do well.)
--- NOTE | 2024-03-03 18:35 | PC.NURSE ---
End of shift-- Very pleasant and cooperative, alert and oriented patient. VSS and pt is afebrile. SPO2 maintained >90% on RA this shift. Encouraged to use IS Pain appears well managed with Toradol and Dilaudid PRN. NG was removed per telephone order from Dr. Puente this afternoon. Midline incision is BINDER CUTTER with jose intact, well approximated and appears to be healing well. Little to no drainage noted in JOJO. JOJO site dressed with gauze that is C/D/I. Ostomy is patent and small amount of brown liquid was noted. He denied nausea. Small amount of gas passed via ostomy. BS+ x4. Pt tolerated small amounts of clear liquids this evening, but is taking it slowly. LS CTA. Pt up and ambulating in hallway independently, frequently this evening.
[2024-03-03] MEDS: ERTAPENEM 1 GM in 0.9 % SODIUM CHLORIDE Mini-bag 100 ML IVPB (19:01)
[2024-03-03] MEDS: 0.9 % SODIUM CHLORIDE 250 ml IV (19:02)
[2024-03-03 20:06] LABS: Basophils Percent Auto 0.2 % (0.0-3.0); Eosinophils Percent Auto 0.3 % (0.0-7.0); Hematocrit 46.3 % (37.0-53.0); Hemoglobin* 14.8 gm/dL (13.5-17.5); Immature Granulocytes Pct Auto 0.2 %; Lymphocytes Percent Auto 25.9 % (20-44); Mean Corpuscular HGB Conc 32 gm/dL (32-36); Mean Corpuscular Hemoglobin 30 pg (26-34); Mean Corpuscular Volume 95 fL (80-100); Monocytes Percent Auto 7.1 % (0.0-11.0); Neutrophils Percent Auto 66.3 % (42.0-72.0); Platelet Count* 263 K/uL (140-440); RDW Coefficient of Variation % 13.1 % (11.5-15.5); Red Blood Count 4.89 m/uL (4.30-5.90); Slide Review Reflex No; White Blood Count* 12.41 K/uL (4.50-11.00)
[2024-03-03] MEDS: ENOXAPARIN 40 MG/0.4 ML INJ SUBCUT (20:23)
[2024-03-04] VITALS (7 sets, daily range): BP systolic 134–154; BP diastolic 89–99; PULSE 70–76; RESP 16–18; TEMP 36.3–37.3; O2SAT 92–96
[2024-03-04] MEDS: HYDROCODONE-ACETAMIN 5-325 MG 1 TAB PO ×3 (03:58→21:12)
[2024-03-04] MEDS: LACTATED RINGERS 1000 ML 1,000 ML 125 ML IV (03:59)
--- NOTE | 2024-03-04 06:13 | PC.NURSE ---
End of shift [id number]: A&O pleasant and cooperative. VSS. Ostomy is producing small amount of stool. JOJO in place and draining. Pt up at [place]. Pt does report some discomfort describing a ?sharp pain? at the end of voiding that resolves quickly. Denies any blood in urine. Rating pain in abdomen 4/10. See eMAR for intervention.?
[2024-03-04 08:43] LABS: Basophils Percent Auto 0.2 % (0.0-3.0); Eosinophils Percent Auto 0.9 % (0.0-7.0); Hematocrit 33.9 % (37.0-53.0); Hemoglobin* 11.1 gm/dL (13.5-17.5); Immature Granulocytes Pct Auto 0.2 %; Lymphocytes Percent Auto 28.3 % (20-44); Mean Corpuscular HGB Conc 33 gm/dL (32-36); Mean Corpuscular Hemoglobin 31 pg (26-34); Mean Corpuscular Volume 94 fL (80-100); Monocytes Percent Auto 7.5 % (0.0-11.0); Neutrophils Percent Auto 62.9 % (42.0-72.0); Platelet Count* 312 K/uL (140-440); RDW Coefficient of Variation % 13.1 % (11.5-15.5); Red Blood Count 3.59 m/uL (4.30-5.90); White Blood Count* 12.56 K/uL (4.50-11.00)
[2024-03-04 08:48] LABS: Slide Review Reflex No
--- NOTE | 2024-03-04 11:59 | NUTR.NU ---
RDN with diet education related to new colostomy. Patient admitted with perforated abdominal viscus postop day 2 of exploratory laparotomy and resection of distal descending colon with creation of end colostomy. Current weight 220lb 1oz; height 5ft 10in; BMI 31.6 kg/m2. Current diet is clear liquids. Patient has been tolerating this well. RDN visit with patient whom agreed to diet education related to new colostomy. Patient was provided diet education related to new colostomy.? Education provided on following a low fiber diet for the next ~4 weeks or per MD recommendation.? Education included recommendations on following a low-fiber diet of less than 13 grams of fiber per day and included foods that are recommended and not recommended.? Discussed foods that may cause blockages, gas/odors, and diarrhea. Also recommended at least 8 cups of fluids daily, or more. Verbal and written information as well as sample menus provided from [facility] on nutrition therapy for colostomy and fiber content of foods list.? Patient verbalized understanding and had no questions or concerns at this time.? RDN's contact information was provided and patient was encouraged to contact RDN with questions.
--- NOTE | 2024-03-04 12:08 | PM.GSPN ---
Subjective Subjective Date Seen: 03/04/24 Interval history: Patient feels great this morning. He is happy the NG tube is out. He has been tolerating clear liquids without difficulty. He denies any nausea, increase abdominal distension or increase in abdominal pain. His pain is currently well controlled and incisional. He has been ambulating without difficulty. After removal of the [place] he did notice some pain at the end of voiding. He describes it as a ?quick sharp pain?. This has slowly improved and he has not noticed it yet today. He denies any foul odor of his urine or blood in his urine. He is feeling hungry and wants to try different foods. He has been getting comfortable with the ostomy training. Exam Narrative: Exam Narrative: General: Alert and oriented, no acute distress Abdomen: Appropriately tender over incisions, no guarding or rebound. Left lower quadrant stoma in place with stool in bag. Midline incision with jose in place, no surrounding erythema or induration. No concern for infection. JOJO drain with minimal serosanguineous output. Const: Vital Signs, click to edit/add: Vital Signs - 24 hr 03/03/24 14:00 03/03/24 15:00 03/03/24 15:00 Temperature Pulse Rate [Right Pulse Oximeter] 73 Respiratory Rate Blood Pressure [R forearm] Blood Pressure [Ri ght Arm] Pulse Oximetry 93 95 Oxygen Delivery Co thod Room Air Room Air Oxygen Flow Rate 03/03/24 16:07 03/03/24 19:00 03/03/24 23:00 Temperature 97.7 F 97.2 F L Pulse Rate [Right Pulse Oximeter] 73 73 Respiratory Rate 18 18 18 Blood Pressure [R forearm] 138/94 H 131/87 Blood Pressure [Ri ght Arm] Pulse Oximetry 96 95 93 [facility] Room Air Oxygen Flow Rate 0 0 03/03/24 23:00 03/04/24 03:51 03/04/24 07:00 Temperature 98.6 F 97.4 F L 97.7 F Pulse Rate [Right Pulse Oximeter] 78 71 74 Respiratory Rate 18 16 18 Blood Pressure [R forearm] Blood Pressure [Ri ght Arm] 147/97 H 141/92 H 142/92 H Pulse Oximetry 93 92 92 Oxygen Delivery Co thod Room Air Room Air Room Air Oxygen Flow Rate 0 03/04/24 07:00 08/28/24 07:00 Temperature Pulse Rate [Right Pulse Oximeter] 74 Respiratory Rate 18 18 Blood Pressure [R forearm] Blood Pressure [Ri ght Arm] Pulse Oximetry 92 Oxygen Delivery Me thod Room Air Oxygen Flow Rate 0 Labs/Imaging Labs Labs: Leukocytosis stable (12) Progress Note:A&P Assessment and plan (1) Perforated abdominal viscus: Status: Acute Plan Patient is postop day 2 exploratory laparotomy, resection of distal descending colon with creation of end colostomy and mucous fistula. Evidence of intra-abdominal free air secondary to perforated diverticulum. No acute events overnight. Leukocytosis stable, patient remains afebrile. Will do 1 additional dose of ertapenem this evening and transition to oral Augmentin to complete a 10 day course. NG tube successfully removed with patient tolerating clear liquids, will slowly advanced diet. JOJO drain with minimal output, this was removed at bedside. Patient continues Education regard with ostomy cares. -DC IV fluids. Clear liquids advance to full liquids this morning. -p.o. pain meds as needed -continue IV ertapenem, will plan to transition to oral antibiotics (Augmentin) to complete a 10 day course. -continue to trend fever and WBC curve -JOJO drain removed at bedside. -encourage ambulation -SCDs, Lovenox for DVT prophylaxis Anticipate discharge in next 1-2 days.
[2024-03-04] MEDS: ERTAPENEM 1 GM in 0.9 % SODIUM CHLORIDE Mini-bag 100 ML IVPB (19:08)
[2024-03-04] MEDS: 0.9 % SODIUM CHLORIDE 250 ml IV (19:09)
--- NOTE | 2024-03-04 20:04 | PC.NURSE ---
Pt VSS. A & O x4. J-tube removed and site looks clean and no signs of infection. Stoma site looks red and beefy. Advanced to a regular diet this evening. Tolerated a regular diet at dinner with no c/o nausea or vomiting. Ambulated the halls x4.
[2024-03-04] MEDS: ENOXAPARIN 40 MG/0.4 ML INJ SUBCUT (21:13)
[2024-03-05] MEDS: HYDROCODONE-ACETAMIN 5-325 MG 1 TAB PO ×2 (02:37→12:27)
[2024-03-05 02:40] VITALS: BP 136/98; PULSE 67; RESP 18; TEMP 36.8; O2SAT 95
--- NOTE | 2024-03-05 06:35 | PC.NURSE ---
End of shift [id number]: A&O pleasant and cooperative. VSS. JOJO site dressing dry and intact. Midline incision stapled and open to air. Ostomy producing liquid stool. up at [place]. Ambulated in halls x2 this shift. Passing gas. denies n/v. tolerating diet. Rating pain in abdomen 3-4/10. See eMAR for interventions. Pt reports the pain while urinating has resolved. Using call light appropriately.
[2024-03-05 06:39] LABS: Basophils Percent Auto 0.5 % (0.0-3.0); Eosinophils Percent Auto 3.8 % (0.0-7.0); Hematocrit 34.1 % (37.0-53.0); Hemoglobin* 11.4 gm/dL (13.5-17.5); Immature Granulocytes Pct Auto 0.5 %; Lymphocytes Percent Auto 28.8 % (20-44); Mean Corpuscular HGB Conc 33 gm/dL (32-36); Mean Corpuscular Hemoglobin 31 pg (26-34); Mean Corpuscular Volume 92 fL (80-100); Monocytes Percent Auto 9.8 % (0.0-11.0); Neutrophils Percent Auto 56.6 % (42.0-72.0); Platelet Count* 423 K/uL (140-440); RDW Coefficient of Variation % 12.4 % (11.5-15.5); Red Blood Count 3.71 m/uL (4.30-5.90); Slide Review Reflex No; White Blood Count* 11.72 K/uL (4.50-11.00)
[2024-03-05 07:00] VITALS: BP 146/97; PULSE 70; RESP 20; TEMP 37.3; O2SAT 95
[2024-03-05] MEDS: SERTRALINE 50 MG TABLET PO (09:41)
[2024-03-05] MEDS: ATORVASTATIN 10 MG TABLET 20 MG PO (09:41)
--- NOTE | 2024-03-05 11:45 | PM.DS1 ---
DS: Providers Provider Date Seen: 03/05/24 Date of admission: 03/02/24 00:40 Primary care physician: Not a Local Provider Admitting Clinician: Pau Puente MD Consults: 03/02/24 19:32 Consult to Wound Care [CONS] Routine Comment: Consulting Provider: Lizzette Hector Attending Physician on discharge: Pau Puente MD DS: Summary Hospital Course Hospital Course: Patient presented to the ED with peritonitis on exam. CT scan demonstrated findings of intra abdominal free air with some inflammation to the left colon, consistent with possible diverticular perforation. He was taken to the OR emergently for exploratory laparotomy with evidence of perforation to the distal descending colon. This segment of colon was removed with creation of an end colostomy and mucous fistula. Post operatively the patient had his pascual removed on POD1. A drain was left in place in the pelvis and removed on POD 3. He had return of bowel function with removal of his NGT on POD2 and was able to advance to a regular diet. He was continued on IV antibiotics, with transition to oral antibiotics to complete a 10 day course. He remained afebrile for >24 hours post op with a downtrending leukocytosis. At the time of discharge patient was tolerating a regular diet, ambulating without difficulty, pain was well controlled on po meds and voiding independently. Time Spent with Patient Time attestation: Total time spent providing and/or coordinating discharge services: Exam Narrative: Exam Narrative: Gen: alert and oriented, NAD Resp: clear breath sounds, maintained on RA CV: RRR Abdomen: soft, non tender, midline incision with jose in place c/d/i. Ostomy with appliance in place, stool in bag. Const: Vital Signs, click to edit/add: Vital Signs - 24 hr 03/04/24 15:00 03/04/24 15:00 03/04/24 15:00 Temperature 97.3 F L Pulse Rate [Right Pulse Oximeter] 76 76 Respiratory Rate 18 18 18 Blood Pressure [Le ft Arm] Blood Pressure [Ri ght Arm] 136/89 Pulse Oximetry 93 93 Oxygen Delivery Me thod Room Air Room Air Oxygen Flow Rate 0 0 03/04/24 21:02 03/04/24 23:20 03/04/24 23:21 Temperature 99.2 F 99.2 F Pulse Rate [Right Pulse Oximeter] 72 74 Respiratory Rate 18 16 16 Blood Pressure [Le ft Arm] Blood Pressure [Ri ght Arm] 154/99 H 134/93 H Pulse Oximetry 95 96 96 Oxygen Delivery Me thod Room Air Room Air Room Air Oxygen Flow Rate 03/05/24 02:40 03/05/24 07:00 03/05/24 07:00 Temperature 98.3 F 99.2 F Pulse Rate [Right Pulse Oximeter] 67 70 Respiratory Rate 18 20 Blood Pressure [Le ft Arm] 136/98 H Blood Pressure [Ri ght Arm] 146/97 H Pulse Oximetry 95 95 95 Oxygen Delivery Me thod Room Air Room Air Room Air Oxygen Flow Rate 03/05/24 07:00 Temperature Pulse Rate [Right Pulse Oximeter] 70 Respiratory Rate 20 Blood Pressure [Le ft Arm] Blood Pressure [Ri ght Arm] Pulse Oximetry Oxygen Delivery Me thod Oxygen Flow Rate DS: Data Data Completed and Pending Labs on day of discharge: Labs from last 24 hours 03/05/24 06:07 WBC 11.72 H RBC 3.71 L Hgb 11.4 L Hct 34.1 L MCV 92 MCH 31 MCHC 33 RDW Coeff of Romero 12.4 Plt Count 423 Neut % (Auto) 56.6 Lymph % (Auto) 28.8 Baldwin % (Auto) 9.8 Eos % (Auto) 3.8 Baso % (Auto) 0.5 Neut # (Auto) 6.60 Lymph # (Auto) 3.40 H Baldwin # (Auto) 1.10 H Eos # (Auto) 0.40 Baso # (Auto) 0.10 Abs Immat Gran (auto) 0.10 Imm/Tot Granulo (auto) 0.5 Discharge Plan Discharge Disposition: Home, Self-Care Date of Admission: 03/02/24 00:40 Attending Provider on Discharge: Pau Puente Consulting Providers: Lizzette Hector Primary Care Provider: Provider,Not a Local Condition: Improved Anticipated Discharge Date/Time: 03/05/24 11:30 Discharge Medications: New amoxicillin-pot clavulanate 875-125 mg Tablet 1 tab PO BIDWM 7 Days Qty: 7 0RF hydrocodone-acetaminophen 5-325 mg tablet 1 tab PO Q6H PRN (Reason: pain) Qty: 20 0RF senna 8.6 mg capsule 8.6 mg PO DAILY PRN (Reason: constipation) Qty: 90 0RF Continued dextroamphetamine-amphetamine 30 mg capsule,extended release 24hr 1 cap PO DAILY atorvastatin 20 mg tablet 20 mg PO DAILY valacyclovir 500 mg tablet 500 mg PO DAILY sertraline 50 mg tablet 50 mg PO QAM Discharge Orders: Discharge Order (Routine); Ordered 03/05/24 Ordered By: Pau Puente Patient Education: Exploratory Laparotomy (DC) Additional Instructions: You were prescribed a narcotic pain medication. In addition you may supplement with Tylenol and/or ibuprofen. Be sure to not exceed greater than 4 g of Tylenol in a 24 hour period. While on narcotic pain medicine please take stool softeners. A prescription of stool softeners has been sent to the pharmacy. Stop if having greater than 2 stools per day. You have jose in place. These will be removed at your follow-up visit in surgery clinic on 03/12/2024. You can shower, allows open water to run over the incision. Do not soak in a bath or swim until the jose are removed and the incision is completely healed. Follow-up with Dr. Puente in 2-3 weeks. Please call if you are experiencing severe pain, nausea, vomiting, difficulty urinating, fever or not had a bowel movement in 4 days after surgery. Activity Level: No strenuous activity Activity Detail: Activity as tolerated. Avoid strenuous activity. No lifting greater than 20 lb for 6 weeks. Discharge Diet: Regular Follow Up Appointments: Pau Puente MD [Staff Physician] - (Please make a visit for the patient to see me in clinic at [facility] on 03/12/24) Forms: [employer] Info Instructions
== END 2024-03-05 15:56 | disposition home or self-care (01) | DRG 221 ==
LOC: ED 18:41 → OR 19:41 → MEDSURG 03-02 01:59 → OR 03-02 02:18 → MEDSURG 03-02 02:18
PROVIDERS: Admitting Provider Surgery; Emergency Provider Family Medicine; Visit Provider Surgery
PROC: (CPT 49000; principal; 2024-03-01 19:30)
DX: K57.20 Diverticulitis of large intestine with perforation and abscess without bleeding (principal); K66.0 Peritoneal adhesions (postprocedural) (postinfection); G89.18 Other acute postprocedural pain
CPT/HCPCS: 00840; 36415; 64488; 74177; 76942; 80048; 80076; 82150; 83690; 85025; 86140; 88307; 93005; 94761; 99140; 99284; 99285; A9270; C9290; J0330; J0665; J1100; J1170; J1335; J1650; J1885; J2060; J2250; J2270; J2371; J2405; J2704; J3010; J3490; J7030; J7050; J7120; Q9967